=== PATIENT | female | born 1980 | race American Indian/Alaskan Native ===

== ENCOUNTER 2017-01-19 06:18 | Emergency (ER) | payer MEDICAID ==
[2017-01-19] MEDS ORDERED: LASIX PO ONE (06:56)
[2017-01-19] MEDS ORDERED: COREG PO ONE (06:56)
[2017-01-19] MEDS ORDERED: ZESTRIL PO ONE (06:56)
--- NOTE | 2017-01-19 07:22 | Emergency Department Report ---
ED Rash HPI - HPI Chief Complaint: Skin/Abscess/Foreign Body Stated Complaint: POSS INSECT BITE Time Seen by Provider: 01/19/17 07:17 Duration: 3 Days Location: Other (lt upper lip) Rash Symptoms: Yes Blistering (lt upper lip), No Itching, No Facial Swelling, No Tongue/Oral Swelling, No Breathing Difficulties, No Choking Sensation, No Wheezing/Dyspnea, No Peeling, No Fever, No Lightheaded, No Malaise, No Myalgias Severity: moderate (6/10) Other History: Patient here reported that she has a blister on her left upper lip that started 3 days ago and she draining yesterday but it came back. She says she believed that she has been bitten by an insect but not sure. Report pain on and off 5-10. She says she's never had this in the past. Denies any fever or chills. Denies any nausea vomiting. Denies contact with individuals with similar problem. She describes the pain as 5 out of 10 and stabbing, aching and throbbing. Denies any sore throat, cough or drooling. Patient blood pressure in triage was 161/122 she does have a history of congestive heart failure and she takes Coreg and/or and lisinopril and has not taken her medication for a couple days. She says she's been under a lot of stress. He said last them until primary care doctor blood pressure was normal. Denies any headache, dizziness, shortness of breath or chest pain. ED Review of Systems ROS: Stated complaint: POSS INSECT BITE Other details as noted in HPI Comment: All other systems reviewed and negative Constitutional: denies: chills, fever Eyes: denies: eye pain, eye discharge ENT: other (blister to left upper lip). denies: ear pain, throat pain, dental pain, congestion Respiratory: no symptoms reported Cardiovascular: denies: chest pain, palpitations, edema, syncope Gastrointestinal: denies: abdominal pain, nausea, vomiting Musculoskeletal: denies: back pain, arthralgia Skin: other (to left upper lip) Neurological: denies: headache, weakness, numbness, paresthesias, confusion, abnormal gait, vertigo ED Past Medical Hx - Past Medical History Previous Medical History?: Yes Hx Hypertension: Yes Additional medical history: Congestive heart failure - Surgical History Past Surgical History?: Yes Additional Surgical History: x 2 - Family History Family history: CAD/SC, hypertension - Social History Smoking Status: Never Smoker Substance Use Type: None - Medications Home Medications: Home Medications Medication Instructions Recorded Confirmed Last Taken Type Carvedilol [Coreg] 12.5 mg PO BID 06/01/15 01/19/17 1 Day Ago History ISOSORBIDE MONOnitrate [Imdur ER] 30 mg PO DAILY 06/01/15 01/19/17 1 Day Ago History Lisinopril [Zestril TAB] 10 mg PO QDAY 06/01/15 01/19/17 1 Day Ago History Potassium Chloride [K-Dur] 20 meq PO BID 06/01/15 01/19/17 1 Day Ago History Acyclovir [Acyclovir Ointment] 30 gm TP TID #1 tube 01/19/17 Unknown Rx Furosemide [Lasix TAB] 40 mg PO BID 01/19/17 01/19/17 1 Day Ago History Valacyclovir HCl [Valtrex] 1,000 mg PO TID #21 tablet 01/19/17 Unknown Rx Rash Exam - Exam General: Vital signs noted. No distress. Alert and acting appropriately. This is a 36-year-old morbidly obese patient. She is well dressed and does not appear ill or toxic. Head: Normocephalic atraumatic Mouth: Moist, no pharyngeal exudate or erythema. Uvula is midline and oral airway is patent. No gingival enlargement or dental tenderness. No facial swelling. No peritonsillar abscesses. Neck: Supple, no C-spine tenderness, no tracheal deviation. Nontender to palpate. no adenopathy Eyes: Bilateral pupils equal and reactive to light, bilateral EOM intact. Bilateral sclera and conjunctiva without injection. Normal accommodation extremity; No CCE. +2 pulses. No neurovascular compromise Cardiovascular: S1-S2, regular rate rhythm. No murmurs. Psych: Normal mood and behavior HEENT: No Periorbital Edema, No Conjuctival Injection, No Chemosis, No Perioral Edema, No Tongue Edema, No Uvular Edema, No Compromised Airway, No Drooling Lungs: Yes Good Air Exchange, No Wheezes, No Ronchi, No Stridor, No Cough, No Labored Respirations, No Retractions, No Use of Accessory Muscles, No Other Abnormal Lung Sounds Heart: Yes Regular, No Murmur Skin: Yes Tenderness (upper lip), Yes Erythema (left upper lip with lesions in cluster), No Urticarial Rash, No Maculopapular Rash, No Morbilliform rash, No Bulla(e), No Excoriations, No Weeping, No Edema, No Encrustations, No Other ( noted erythema area to left upper lip with blister.) Other: Positive: Abdomen Normal, Neurologic Normal, Musculoskeletal Normal ED Course Vital Signs 01/19/17 01/19/17 01/19/17 06:29 06:50 07:19 Temperature 98.9 F Pulse Rate 99 H 97 H 97 H Respiratory 18 20 Rate Blood Pressure 161/122 192/112 Blood Pressure 193/112 [Right] O2 Sat by Pulse 100 100 Oximetry Vital Signs 01/19/17 01/19/17 01/19/17 06:29 06:50 07:15 Temperature 98.9 F Pulse Rate 99 H 97 H 97 H Respiratory 18 20 Rate Blood Pressure 161/122 192/112 Blood Pressure 193/112 [Right] O2 Sat by Pulse 100 100 Oximetry 01/19/17 01/19/17 07:19 08:31 Temperature Pulse Rate 97 H 93 H Respiratory 18 Rate Blood Pressure 192/112 Blood Pressure 153/101 [Right] O2 Sat by Pulse 99 Oximetry - Reevaluation(s) Reevaluation #1: 01/19/17 08:42 Patient given her blood pressure medication in emergency room and observed for one hour repeat blood pressure was better. 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 She is also with elevated blood pressure with history of hypertension.She remains asymptomatic with elevated bp.She was given Lasix 40 mg , Zestril 20 mg and Coreg 12.5 mg in emergency room for elevated blood pressure. Upon reevaluation, her blood pressure was better but still elevated. I discussed with patient importance of compliance with her blood pressure medication given the fact she has high blood pressure with congestive heart failure she needs to take her medication everyday. Patient voiced understanding of discharge instruction and treatment plan and she was discharged home in stable condition with prescription for Valtrex and acyclovir cream. Patient did not want refill on her blood pressure medication because she said she has at home she just hasn't taken them. Critical care attestation.: If time is entered above; I have spent that time in minutes in the direct care of this critically ill patient, excluding procedure time. ED Disposition Clinical Impression: Herpes simplex virus type 1 (HSV-1) dermatitis, Elevated blood pressure reading with diagnosis of hypertension, Noncompliance with medications Disposition: DISCHARGED TO HOME OR SELFCARE Is pt being admited?: No Does the pt Need Aspirin: No Condition: Stable Instructions: Hypertension (ED), Oral Herpes Simplex Virus Infections (ED), DASH Eating Plan (ED), Heart Healthy Diet (ED) Additional Instructions: Take medication as prescribed. Please take your blood pressure medication on a daily basis. Keep a log of her blood pressure and schedule appointment follow-up visit. Prescriptions: Acyclovir [Acyclovir Ointment] 30 gm TP TID #1 tube Valacyclovir HCl [Valtrex] 1,000 mg PO TID #21 tablet Referrals: PRIMARY CARE, [Primary Care Provider] - 3-5 Days Forms: Work/School Release Form(ED)
[2017-01-19 08:33] VITALS: BP 153/101
== END 2017-01-19 09:00 | disposition home or self-care (01) ==
LOC: ED 06:18
DX: S00.521A Blister (nonthermal) of lip, initial encounter (principal); B00.1 Herpesviral vesicular dermatitis; I10 Essential (primary) hypertension; Z91.14 Patient's other noncompliance with medication regimen; I50.9 Heart failure, unspecified; X58.XXXA Exposure to other specified factors, initial encounter; Y93.9 Activity, unspecified; Y99.9 Unspecified external cause status; Y92.9 Unspecified place or not applicable
CPT/HCPCS: 99282

== ENCOUNTER 2017-02-04 08:27 | Emergency (ER) | payer MEDICAID ==
--- NOTE | 2017-02-04 13:50 | Emergency Department Report ---
ED Back Pain/Injury HPI - General Chief Complaint: Back Pain/Injury Stated Complaint: BACK PAIN Time Seen by Provider: 02/04/17 13:16 Source: patient Mode of arrival: Ambulatory Limitations: No Limitations - History of Present Illness Initial Comments: Pt c/o lbp x 2 days. Pt denies recent back injury, Pt states she was in [facility] 2 years ago and had similar pain. pt states previous imaging was normal. Pt denies chronic pain. MD Complaint: back pain Onset/Timin -: Gradual, days(s) Similar Symptoms Previously: Yes Place: home Radiation: left leg Severity: severe Severity scale (0 -10): 8 Quality: aching Consistency: constant Worsens With: movement Associated Symptoms: denies other symptoms. denies: difficulty walking, incontinence, fever/chills, abdominal pain, loss of appetite, nausea/vomiting, shortness of breath - Related Data Home Medications Medication Instructions Recorded Confirmed Last Taken Carvedilol [Coreg] 12.5 mg PO BID 06/01/15 01/19/17 1 Day Ago ISOSORBIDE MONOnitrate [Imdur ER] 30 mg PO DAILY 06/01/15 01/19/17 1 Day Ago Lisinopril [Zestril TAB] 10 mg PO QDAY 06/01/15 01/19/17 1 Day Ago Potassium Chloride [K-Dur] 20 meq PO BID 06/01/15 01/19/17 1 Day Ago Furosemide [Lasix TAB] 40 mg PO BID 01/19/17 01/19/17 1 Day Ago Previous Rx's Medication Instructions Recorded Last Taken Type Acyclovir [Acyclovir Ointment] 30 gm TP TID #1 tube 01/19/17 Unknown Rx Valacyclovir HCl [Valtrex] 1,000 mg PO TID #21 tablet 01/19/17 Unknown Rx Acetaminophen/Codeine [Tylenol #3] 1 tab PO Q6H PRN #12 tab 02/04/17 Unknown Rx Ibuprofen [Motrin] 600 mg PO Q8H PRN #15 tablet 02/04/17 Unknown Rx methOCARBAMOL [Robaxin TAB] 500 mg PO Q6H PRN #15 tablet 02/04/17 Unknown Rx Allergies Allergy/AdvReac Type Severity Reaction Status Date / Time No Known Allergies Allergy Unverified 06/01/15 08:56 ED Review of Systems ROS: Stated complaint: BACK PAIN Other details as noted in HPI Comment: All other systems reviewed and negative Constitutional: denies: chills, fever Genitourinary: denies: abnormal menses (lmp today) Musculoskeletal: as per HPI, back pain Neurological: denies: paresthesias, abnormal gait ED Past Medical Hx - Past Medical History Hx Hypertension: Yes Additional medical history: Congestive heart failure - Surgical History Additional Surgical History: x 2 - Social History Smoking Status: Never Smoker Substance Use Type: None - Medications Home Medications: Home Medications Medication Instructions Recorded Confirmed Last Taken Type Carvedilol [Coreg] 12.5 mg PO BID 06/01/15 01/19/17 1 Day Ago History ISOSORBIDE MONOnitrate [Imdur ER] 30 mg PO DAILY 06/01/15 01/19/17 1 Day Ago History Lisinopril [Zestril TAB] 10 mg PO QDAY 06/01/15 01/19/17 1 Day Ago History Potassium Chloride [K-Dur] 20 meq PO BID 06/01/15 01/19/17 1 Day Ago History Acyclovir [Acyclovir Ointment] 30 gm TP TID #1 tube 01/19/17 Unknown Rx Furosemide [Lasix TAB] 40 mg PO BID 01/19/17 01/19/17 1 Day Ago History Valacyclovir HCl [Valtrex] 1,000 mg PO TID #21 tablet 01/19/17 Unknown Rx Acetaminophen/Codeine [Tylenol #3] 1 tab PO Q6H PRN #12 tab 02/04/17 Unknown Rx Ibuprofen [Motrin] 600 mg PO Q8H PRN #15 tablet 02/04/17 Unknown Rx methOCARBAMOL [Robaxin TAB] 500 mg PO Q6H PRN #15 tablet 02/04/17 Unknown Rx ED Physical Exam - General Limitations: No Limitations General appearance: alert, in no apparent distress, obese - Head Head exam: Present: atraumatic, normocephalic, normal inspection - Eye Eye exam: Present: normal appearance, EOMI. Absent: conjunctival injection - ENT ENT exam: Present: normal exam, normal external ear exam - Neck Neck exam: Present: normal inspection, full ROM. Absent: tenderness - Respiratory Respiratory exam: Present: normal lung sounds bilaterally. Absent: respiratory distress, chest wall tenderness - Cardiovascular Cardiovascular Exam: Present: regular rate, normal rhythm, normal heart sounds - GI/Abdominal GI/Abdominal exam: Present: soft. Absent: tenderness - Extremities Exam Extremities exam: Present: normal inspection, full ROM. Absent: tenderness, pedal edema - Back Exam Back exam: Present: normal inspection, full ROM, tenderness, muscle spasm, paraspinal tenderness (Left lumbar ). Absent: CVA tenderness (R), CVA tenderness (L) - Neurological Exam Neurological exam: Present: alert, oriented X3, normal gait - Psychiatric Psychiatric exam: Present: normal affect, normal mood - Skin Skin exam: Present: warm, dry, intact, normal color ED Course Vital Signs 02/04/17 02/04/17 08:57 14:09 Temperature 98.6 F 98.4 F Pulse Rate 85 88 Respiratory 18 20 Rate Blood Pressure 172/101 Blood Pressure 169/94 [Left] O2 Sat by Pulse 100 100 Oximetry - Reevaluation(s) Reevaluation #1: 02/04/17 13:52 Pt aware of plan of care. - Pulse Oximetry Interpretation Digit-Finger Initial Pulse Oximetry Readin Actions Taken: none ED Medical Decision Making - Differential Diagnosis strain, sciatic, ddd Critical Care Time: No Critical care attestation.: If time is entered above; I have spent that time in minutes in the direct care of this critically ill patient, excluding procedure time. ED Disposition Clinical Impression: Low back pain Qualifiers: Chronicity: acute Back pain laterality: left Sciatica presence: with sciatica Sciatica laterality: sciatica of left side Qualified Code(s): M54.42 - Lumbago with sciatica, left side Disposition: DISCHARGED TO HOME OR SELFCARE Is pt being admited?: No Does the pt Need Aspirin: No Condition: Stable Instructions: Low Back Strain (ED), Acute Low Back Pain (ED) Additional Instructions: No driving or ETOH with Robaxin or Tylenol #3 Follow up with your PCP in 2-3 days, you may need MRI of your spine or physical therapy for your back pain Recheck your bp on follow up Prescriptions: Acetaminophen/Codeine [Tylenol #3] 1 tab PO Q6H PRN #12 tab PRN Reason: Pain , Severe (7-10) Ibuprofen [Motrin] 600 mg PO Q8H PRN #15 tablet PRN Reason: Pain methOCARBAMOL [Robaxin TAB] 500 mg PO Q6H PRN #15 tablet PRN Reason: Muscle Spasm Referrals: VIKY THOMAS MD [Primary Care Provider] - 3-5 Days Time of Disposition: 13:56
[2017-02-04 14:10] VITALS: BP 169/94
== END 2017-02-04 14:16 | disposition home or self-care (01) ==
LOC: ED 08:27
DX: M54.42 Lumbago with sciatica, left side (principal); I10 Essential (primary) hypertension; I50.9 Heart failure, unspecified
CPT/HCPCS: 99282

== ENCOUNTER 2021-07-12 07:42 | Emergency (ER) | payer MEDICAID ==
--- NOTE | 2021-07-12 08:15 | Emergency Department Report ---
HPI - General Chief Complaint: Dyspnea/Respdistress Time Seen by Provider: 07/12/21 08:00 - HPI HPI: 41-year-old -[place] female presents to the emergency department with complaint of shortness of breath that worsens with exertion that has been going on for the past 1 to 2 days. She also has a mild mixed dry and productive cough, but denies any fever, lower extremity swelling, chest pain, nausea, vomiting, diarrhea. The patient was diagnosed with COVID-19 on Friday, 4 days ago, but thinks that the symptoms have been going on since the week before that. She has a history of CHF and had concerned that she could be having a CHF exacerbation. She had 2 different episodes between yesterday afternoon and this evening in which she had increased shortness of breath and required nebulized albuterol in order to have improvement. No recent travel or sick contacts at home. Her addiction therapist is Dr. Razo. She is on Lasix 40 mg twice daily and has been compliant with this and all of her home medications. ED Past Medical Hx - Past Medical History Previous Medical History?: Yes Hx Hypertension: Yes Additional medical history: Congestive heart failure - Surgical History Past Surgical History?: Yes Additional Surgical History: x 2 - Social History Smoking Status: Never Smoker Substance Use Type: None - Medications Home Medications: Home Medications Medication Instructions Recorded Confirmed Last Taken Type ISOSORBIDE MONOnitrate [Imdur ER] 120 mg PO DAILY 06/01/15 01/19/17 07/12/21 07:00 History Potassium Chloride [K-Dur] 20 meq PO BID 06/01/15 01/19/17 07/12/21 07:00 History carvediloL [Coreg] 25 mg PO BID 06/01/15 01/19/17 07/12/21 07:00 History Furosemide [Lasix TAB] 40 mg PO BID 01/19/17 01/19/17 07/11/21 17:00 History Acetaminophen/Codeine [Tylenol #3] 1 tab PO Q6H PRN #12 tab 02/04/17 07/12/21 07:00 Rx Ibuprofen [Motrin] 600 mg PO Q8H PRN #15 tablet 02/04/17 Unknown Rx ALBUTEROL NEB's [Proventil 0.083% 2.5 mg IH TID PRN #1 box 07/12/21 Unknown Rx NEBS] Albuterol Mdi (or & Nicu Only) 2 puff IH QID PRN #8.5 gram 07/12/21 Unknown Rx [ProAir HFA Inhaler] Doxazosin Mesylate [Cardura Xl] 4 mg PO DAILY 07/12/21 07/12/21 07/12/21 07:00 History Lisinopril/Hydrochlorothiazide 1 each PO 07/12/21 07/12/21 07:00 History [Zestoretic 10-12.5 mg Tablet] ED Review of Systems ROS: Stated complaint: SOB Other details as noted in HPI Comment: All other systems reviewed and negative Constitutional: denies: chills, fever Eyes: denies: eye pain, vision change ENT: denies: ear pain, throat pain Respiratory: cough, shortness of breath, SOB with exertion. denies: orthopnea Cardiovascular: denies: chest pain, edema Gastrointestinal: denies: abdominal pain, vomiting Genitourinary: denies: dysuria, discharge Musculoskeletal: denies: back pain, arthralgia Skin: denies: rash, lesions Neurological: denies: headache, weakness Physical Exam - Physical Exam Vital Signs: Vital Signs 07/12/21 07:46 Temperature 98.4 F Pulse Rate 91 H Respiratory 20 Rate Blood Pressure 142/76 O2 Sat by Pulse 98 Oximetry Physical Exam: GENERAL: The patient is well-developed well-nourished. HENT: Normocephalic. Atraumatic. Patient has moist mucous membranes. EYES: Extraocular motions are intact. NECK: Supple. Trachea is midline. CHEST/LUNGS: Clear to auscultation. No tachypnea or accessory muscle use while at rest. No cough heard during examination. There is no respiratory distress noted. HEART/CARDIOVASCULAR: Regular. There is no tachycardia. There is no murmur. ABDOMEN: Abdomen is soft, nontender. Patient has normal bowel sounds. Morbidly obese habitus. SKIN: Skin is warm and dry. No appreciable lower extremity pitting edema. NEURO: The patient is awake, alert, and oriented. The patient is cooperative. The patient has no focal neurologic deficits. Normal speech. MUSCULOSKELETAL: There is no tenderness or deformity. There is no limitation range of motion. ED Course Vital Signs 07/12/21 07:46 Temperature 98.4 F Pulse Rate 91 H Respiratory 20 Rate Blood Pressure 142/76 O2 Sat by Pulse 98 Oximetry ED Medical Decision Making - Lab Data Result diagrams: 07/12/21 08:30 07/12/21 08:30 Lab Results 07/12/21 07/12/21 Range/Units 08:30 08:30 WBC 7.6 (4.5-11.0) K/mm3 RBC 4.27 (3.65-5.03) M/mm3 Hgb 11.9 (10.1-14.3) gm/dl Hct 36.4 (30.3-42.9) % MCV 85 (79-97) fl MCH 28 (28-32) pg MCHC 33 (30-34) % RDW 15.3 H (13.2-15.2) % Plt Count 328 (140-440) K/mm3 Lymph % (Auto) 26.0 (13.4-35.0) % [place] % (Auto) 6.1 (0.0-7.3) % Eos % (Auto) 3.2 (0.0-4.3) % Baso % (Auto) 0.9 (0.0-1.8) % Lymph # (Auto) 2.0 (1.2-5.4) K/mm3 [place] # (Auto) 0.5 (0.0-0.8) K/mm3 Eos # (Auto) 0.2 (0.0-0.4) K/mm3 Baso # (Auto) 0.1 (0.0-0.1) K/mm3 Seg Neutrophils % 63.8 (40.0-70.0) % Seg Neutrophils # 4.8 (1.8-7.7) K/mm3 Sodium 138 (137-145) mmol/L Potassium 4.0 (3.6-5.0) mmol/L Chloride 101.3 (98-107) mmol/L Carbon Dioxide 26 (22-30) mmol/L Anion Gap 15 mmol/L BUN 14 (7-17) mg/dL Creatinine 0.8 (0.6-1.2) mg/dL Estimated GFR > 60 ml/min BUN/Creatinine Ratio 18 % Glucose 124 H (65-100) mg/dL Calcium 9.1 (8.4-10.2) mg/dL Total Bilirubin 0.30 (0.1-1.2) mg/dL AST 15 (5-40) units/L ALT 17 (7-56) units/L Alkaline Phosphatase 98 (35-129) units/L Troponin T < 0.010 (0.00-0.029) ng/mL NT-Pro-B Natriuret Pep 40.32 (0-450) pg/mL Total Protein 8.3 H (6.3-8.2) g/dL Albumin 3.7 L (3.9-5) g/dL Albumin/Globulin Ratio 0.8 % - EKG Data -: EKG Interpreted by Me EKG shows normal: sinus rhythm, axis, intervals, QRS complexes, ST-T waves Rate: normal - EKG Data When compared to previous EKG there are: previous EKG unavailable Interpretation: normal EKG - Radiology Data Radiology results: image reviewed interpreted by me: Chest x-ray shows some mild pulmonary vascular congestion. No obvious pneumonia. No pneumothorax. No widened mediastinum. - Medical Decision Making This patient presents to the emergency department with a complaint of shortness of breath that worsens with exertion, and some recent URI type symptoms. The patient was positive for COVID-19 as of 4 days ago. She also has a history of CHF and is concerned that she could have a CHF exacerbation. On examination the patient's lungs and heart are normal to auscultation and the patient does not appear in any respiratory or acute distress. No appreciable lower extremity pitting edema. Vital signs have been reassuring throughout her ED course including being afebrile and no hypoxia. Chest x-ray shows some mild pulmonary vascular congestion, but no overt pleural effusions. No pneumonia or pneumothorax or widened mediastinum. Labs have been unremarkable including CBC, metabolic panel, negative troponin, and a normal proBNP. As the patient does not have any significant volume overload seen on chest x-ray, has a low proBNP, does not have any pitting edema to the lower extremities, overall she does not appear to be in a CHF exacerbation. The patient is compliant with her home medications including Lasix. Patient was able to do a 2-minute ambulatory test without any hypoxia or oxygen desaturation. She did have some increased work of breathing but this resolved her symptoms the patient sat back down on the gurney. This is most likely a combination of factors including her recent Covid infection. The patient does not appear to have any condition at this time that requires a medical admission to this hospital. She will be discharged home with a refill of her albuterol inhaler and nebulizer treatments. She has been instructed to follow-up with her primary care physician and addiction therapist, she will return to the emergency department with any worsening of her symptoms or with any acute distress. Critical Care Time: No Critical care attestation.: If time is entered above; I have spent that time in minutes in the direct care of this critically ill patient, excluding procedure time. ED Disposition Clinical Impression: COVID-19, Dyspnea, History of CHF (congestive heart failure) Disposition: HOME / SELF CARE / HOMELESS Is pt being admited?: No Condition: Stable Additional Instructions: Please follow-up with your primary care physician and addiction therapist. Given your recent diagnosis of COVID-19, please isolate/quarantine yourself from anybody who is unvaccinated, elderly, immunocompromised, chronically ill or debilitated. Continue taking your home medications as prescribed. Return to the emergency department with any worsening of your symptoms, new or concerning symptoms not addressed during this current emergency department visit, or with any acute distress. Prescriptions: Albuterol Mdi (or & Nicu Only) [ProAir HFA Inhaler] 2 puff IH QID PRN #8.5 gram PRN Reason: Shortness Of Breath ALBUTEROL NEB's [Proventil 0.083% NEBS] 2.5 mg IH TID PRN #1 box PRN Reason: Wheezing Referrals: PRIMARY CARE, [Primary Care Provider] - 3-5 Days KEYSHAWN RAZO MD [Staff Physician] - 3-5 Days Time of Disposition: 10:16
--- NOTE | 2021-07-12 08:48 | XRay Report ---
XR chest routine 2V INDICATION / CLINICAL INFORMATION: SOB. COMPARISON: None available. FINDINGS: SUPPORT DEVICES: None. HEART /PULMONARY VASCULATURE: Cardiac enlargement with prominence of the pulmonary vasculature. LUNGS / PLEURA: No significant pulmonary or pleural abnormality. No pneumothorax. ADDITIONAL FINDINGS: No significant additional findings. IMPRESSION: Cardiac enlargement with prominence of the central pulmonary vasculature, may reflect mild CHF. Signer Name: Garry Rolon MD Signed: 07/12/2021 8:43 AM Workstation Name: [id number]
[2021-07-12 08:53] LABS: Basophils # (Auto) 0.1 K/mm3 (0.0-0.1); Basophils % (Auto) 0.9 % (0.0-1.8); Eosinophils # (Auto) 0.2 K/mm3 (0.0-0.4); Eosinophils % (Auto) 3.2 % (0.0-4.3); Hematocrit 36.4 % (30.3-42.9); Hemoglobin 11.9 gm/dl (10.1-14.3); Mean Corpuscular HGB Conc 33 % (30-34); Mean Corpuscular Volume 85 fl (79-97); Monocytes # (Auto) 0.5 K/mm3 (0.0-0.8); Monocytes % (Auto) 6.1 % (0.0-7.3); Platelet Count 328 K/mm3 (140-440); Red Blood Count 4.27 M/mm3 (3.65-5.03); Red Cell Distribution Width 15.3 % (13.2-15.2)
[2021-07-12 09:19] LABS: Alanine Aminotransferase 17 units/L (7-56); Albumin 3.7 g/dL (3.9-5); BUN/Creatinine Ratio 18; Blood Urea Nitrogen 14 mg/dL (7-17); Calcium 9.1 mg/dL (8.4-10.2); Hemolysis Index 4
[2021-07-12 10:24] VITALS: BP 129/75
--- NOTE | 2021-07-13 14:11 | Electrocardiograph Report ---
[facility] Test Date: 2021-07-12 Test Time: 08:43:44 Pat Name: KULWINDER CAMPUZANO Department: Room: Gender: F Appliquer: DAY : 1980 Requested By: DANYA GALAN Order Number: [id number] Reading MD: Linda Reardon Measurements Intervals [place] Rate: 85 P: 46 [place]: 195 QRS: 0 QRSD: 107 T: -4 QT: 389 QTc: 464 Interpretive Statements Sinus rhythm Indeterminate axis Nonspecific T abnormalities, inferior leads No previous ECG available for comparison Electronically Signed On 07-13-2021 14:11:32 EDT by Linda Reardon
== END 2021-07-12 10:47 | disposition home or self-care (01) ==
LOC: ED 07:42
DX: U07.1 COVID-19 (principal); R06.00 Dyspnea, unspecified; I11.0 Hypertensive heart disease with heart failure; I50.9 Heart failure, unspecified; R06.02 Shortness of breath; R05.9 Cough, unspecified; Z98.890 Other specified postprocedural states
CPT/HCPCS: 36415; 71046; 80053; 83880; 84484; 85025; 93005; 99283

== ENCOUNTER 2022-06-06 11:28 | Outpatient (CLI) | payer MEDICAID ==
[2022-06-06 12:33] LABS: ABG HCO3 25.4 mmol/L (20.0-26.0); ABG Methemoglobin 0.6 % (0.0-1.5); ABG PCO2 39.7 mm Hg; ABG PH 7.424 pH Units (7.350-7.450); ABG PO2 86.9 mm Hg (80.0-90.0)
[2022-06-06 12:48] LABS: Hematocrit 34.7 % (30.3-42.9); Hemoglobin 11.2 gm/dl (10.1-14.3); Mean Corpuscular HGB Conc 32 % (30-34); Mean Corpuscular Volume 87 fl (79-97); Platelet Count 304 K/mm3 (140-440); Red Blood Count 4.02 M/mm3 (3.65-5.03); Red Cell Distribution Width 15.1 % (13.2-15.2)
[2022-06-06 12:55] LABS: Alanine Aminotransferase 14 units/L (7-56); Albumin 3.7 g/dL (3.9-5); BUN/Creatinine Ratio 19; Blood Urea Nitrogen 17 mg/dL (7-17); Calcium 9.5 mg/dL (8.4-10.2); Chol/HDL Ratio 3.47 %; HDL Cholesterol 59 mg/dL (40-59); Hemolysis Index 2; LDL Cholesterol,Direct 131 mg/dL (50-130)
--- NOTE | 2022-06-06 14:26 | XRay Report ---
CHEST 2 VIEWS INDICATION: HX OF COVID INFECTION.. COMPARISON: 07/12/2021 FINDINGS: SUPPORT DEVICES: None. HEART: Within normal limits. LUNGS/PLEURA: No acute air space or interstitial disease. No pneumothorax. ADDITIONAL FINDINGS: None. IMPRESSION: 1. No acute findings. Signer Name: Dada Cohen MD Signed: 06/06/2022 2:21 PM Workstation Name: [id number]
== END 2022-06-06 11:29 | disposition home or self-care (01) ==
LOC: LAB 11:28
PROVIDERS: ATTEND Internal Medicine
DX: J45.41 Moderate persistent asthma with (acute) exacerbation (principal); I42.9 Cardiomyopathy, unspecified; J30.89 Other allergic rhinitis; I10 Essential (primary) hypertension; Z68.41 Body mass index [BMI] 40.0-44.9, adult; Z86.16 Personal history of COVID-19
CPT/HCPCS: 36415; 71046; 80053; 80061; 82550; 82728; 82785; 82803; 83615; 84436; 84443; 84484; 85027; 85379; 86140